=== PATIENT | female | born 1970 | race Caucasian/White ===

== ENCOUNTER 2016-08-24 13:35 | Inpatient (IN) | payer BC, SELFPAY | END 2016-08-29 20:00 | disposition home or self-care (01) | DRG 603 | LOC: MED 13:35 | PROVIDERS: ADMIT Internal Medicine | DX: L03.116 Cellulitis of left lower limb (principal); I42.0 Dilated cardiomyopathy; Z68.44 Body mass index [BMI] 60.0-69.9, adult; L97.819 Non-pressure chronic ulcer of other part of right lower leg with unspecified severity; I50.22 Chronic systolic (congestive) heart failure; B96.5 Pseudomonas (aeruginosa) (mallei) (pseudomallei) as the cause of diseases classified elsewhere; I87.2 Venous insufficiency (chronic) (peripheral); I44.7 Left bundle-branch block, unspecified; K21.9 Gastro-esophageal reflux disease without esophagitis; E66.01 Morbid (severe) obesity due to excess calories; E03.9 Hypothyroidism, unspecified; Z86.711 Personal history of pulmonary embolism; G47.30 Sleep apnea, unspecified; E78.5 Hyperlipidemia, unspecified; G89.29 Other chronic pain; M54.5 Low back pain; G62.9 Polyneuropathy, unspecified; F32.9 Major depressive disorder, single episode, unspecified; Z86.010 Personal history of colon polyps; Z87.01 Personal history of pneumonia (recurrent); Z95.810 Presence of automatic (implantable) cardiac defibrillator; Z90.49 Acquired absence of other specified parts of digestive tract; Z90.721 Acquired absence of ovaries, unilateral; Z79.01 Long term (current) use of anticoagulants; Z79.899 Other long term (current) drug therapy; I48.91 Unspecified atrial fibrillation; R60.9 Edema, unspecified; I11.0 Hypertensive heart disease with heart failure; R00.1 Bradycardia, unspecified ==